=== PATIENT | male | born 1995 | race African-American/Black ===

== ENCOUNTER 2016-09-12 21:33 | Emergency (ER) | payer SELFPAY ==
[~2016-09-12] VITALS: Ht 182.9 cm; Wt 72.0 kg
[~2016-09-12 21:33] MED LIST: AMIT10TA13 PO
[2016-09-12 21:36] VITALS: BP 150/87; PULSE 65; RESP 16; TEMP 98.6; O2SAT 99
[2016-09-12] MEDS ORDERED: AMOX500C PO (22:00)
[2016-09-12] MEDS ORDERED: AMOXICILLIN (TRIHYDRATE) 500 MG CAP PO ONE (22:00)
[2016-09-12] MEDS ORDERED: ACETAMINOPHEN/HYDROcodone 325 MG/5 MG TAB PO ONE (22:00)
[2016-09-12] MEDS ORDERED: DICL50TA3 PO (22:00)
--- NOTE | 2016-09-12 22:05 | PD ---
HPI Chief Complaint: Injury Time Seen by Provider: 22:01 Travel History International Travel<30 days: No Contact w/Intl Traveler<30days: No Traveled to known affect area: No History of Present Illness HPI 21-year-old black male presents to emergency Department with complaints of nosebleed. He states that he was playing basketball at [employer] and was accidentally elbowed in the nose. He had immediate pain, swelling and bleeding. He denies syncope. No dental injury. Pain is mild to moderate. No neck or back pain. PFSH Past Medical History Diminished Hearing: No Immunizations Current: No Schizophrenia: Yes (STATES DOES NOT TAKE HIS MEDS) Tetanus Vaccination: < 5 Years Past Surgical History Surgical History: No Previous Surgery Social History Alcohol Use: No Tobacco Use: No Substance Use: No (Pt denies ) Allergies-Medications (Allergen,Severity, Reaction): Coded Allergies: No Known Allergies (Unverified , 09/12/16) Reported Meds & Prescriptions Reported Meds & Active Scripts Active Reported Elavil (Amitriptyline HCl) 10 Mg Tab 10 Mg PO DIRECTED Review of Systems Except as stated in HPI: all other systems reviewed are Neg General / Constitutional: No: Fever, Chills Eyes: No: Diploplia, Blurred Vision HENT: Positive: Congestion, Nosebleed, No: Neck Stiffness, Neck Pain, Gingival Bleeding, Dental Difficulties, Ear Discharge Cardiovascular: No: Chest Pain or Discomfort, Palpitations Respiratory: No: Cough, Shortness of Breath Gastrointestinal: No: Nausea, Vomiting Neurologic: Positive: Headache, No: Dizziness, Syncope, Coordination Problem Physical Exam Narrative GENERAL: Well-developed, well-nourished in no acute distress. Nontoxic appearing. HEAD: Normocephalic, atraumatic. EYES: Pupils equal round and reactive. Extraocular motions intact. No scleral icterus. No injection or drainage. ENT: TMs clear without erythema. The external auditory canals clear. Nose: Has blood clots in both nostrils. Right greater than left. He has tenderness and swelling to the right bridge of the nose.. Posterior pharynx is pink and moist. No tonsillar edema or exudate. Uvula midline. Airway patent. NECK: Trachea midline.Supple, nontender, moves head freely. No central bony tenderness or spasm. CARDIOVASCULAR: Regular rate and rhythm without murmurs, gallops, or rubs. RESPIRATORY: Clear to auscultation. Breath sounds equal bilaterally. No wheezes , rales, or rhonchi. GASTROINTESTINAL: Abdomen soft, non-tender, nondistended. No hepato-splenomegaly , or palpable masses. No guarding. EXTREMITIES: No clubbing, cyanosis, or edema. No joint tenderness, effusion, or edema noted. BACK: Nontender without deformity or crepitance. No flank tenderness. Data Data Last Documented VS Vital Signs Date Time Temp Pulse Resp B/P Pulse Ox O2 Delivery O2 Flow Rate FiO2 09/12/16 21:36 98.6 65 16 150/87 99 Room Air Orders Acetamin-Hydrocod 325-5 Mg ([place] 5-325 (09/12/16 22:00) Amoxicillin (Trimox) (09/12/16 22:00) MDM Medical Decision Making Medical Screen Exam Complete: Yes Emergency Medical Condition: Yes Medical Record Reviewed: Yes Differential Diagnosis MDM: High Differential diagnoses: Fracture, sprain, strain, dislocation, contusion, neurovascular injury Narrative Course Patient's given Lortab 5 and amoxicillin 500 mg by mouth. Patient has a nasal fracture clinically. Diagnosis Primary Impression: Nasal fracture Qualified Code: S02.2XXA - Closed fracture of nasal bone, initial encounter Patient Instructions: General Instructions Departure Forms: School Release, Please excuse from school until (free text option): No PE times one week. Tests/Procedures Additional Instructions: Rest. Ice. No nose blowing. No picking, snorting or sneezing. Diclofenac and amoxicillin. Follow-up with the clinic at school in 1 week. Med/Other Pt SpecificInfo: Prescription(s) given Scripts Diclofenac Sodium DR 50 Mg Tabdr50 Mg PO TID #30 TAB Prov:Karen Dillon DO 09/12/16 Amoxicillin 500 Mg [id number] Mg PO TID #21 CAP Prov:Karen Dillon DO 09/12/16 Disposition: 01 DISCHARGE HOME Condition: Stable Hilton Keith Sep 12, 2016 22:05
== END 2016-09-12 23:17 | disposition home or self-care (01) ==
LOC: NEPB 21:33
DX: S02.2XXA Fracture of nasal bones, initial encounter for closed fracture (principal); W50.0XXA Accidental hit or strike by another person, initial encounter; Y93.67 Activity, basketball; Y92.39 Other specified sports and athletic area as the place of occurrence of the external cause; Y99.8 Other external cause status
CPT/HCPCS: 99283